=== PATIENT | male | born 1995 | race African-American/Black ===

== ENCOUNTER 2021-03-25 23:04 | Emergency (ER) | payer MEDICAID ==
[~2021-03-25] VITALS: Ht 162.6 cm; Wt 67.0 kg
[2021-03-26] MEDS ORDERED: KETOROLAC 60MG/2ML VIAL IM ONE (00:30)
[2021-03-26 01:35] VITALS: BP 128/86
[2021-03-26 02:00] LABS: MONOTEST NEGATIVE (NEGATIVE)
== END 2021-03-26 03:41 | disposition home or self-care (01) ==
LOC: ER 23:04
DX: J02.9 Acute pharyngitis, unspecified (principal)
CPT/HCPCS: 86308; 87070; 87430; 96372; 99283; J1885